=== PATIENT | female | born 1955 | race Caucasian/White ===

== ENCOUNTER → 2023-06-10 08:00 | Outpatient (REF) | payer OTHER, SELFPAY | LOC: MRI 3T 08:00 | PROVIDERS: ATTENDING PHYSICIAN Physical Medicine & Rehabilitation; FAMILY PHYSICIAN Internal Medicine | DX: M23.91 Unspecified internal derangement of right knee (principal) | CPT/HCPCS: 73721 ==

== ENCOUNTER → 2023-06-19 07:58 | Outpatient (REF) | payer OTHER, SELFPAY ==
[2023-06-19 10:11] LABS: Albumin 4.1 g/dl (3.5-5.0); Blood Urea Nitrogen 17 mg/dl (7-17); Calcium 9.5 mg/dl (8.4-10.2); Carbon Dioxide 29 mmol/L (22-30); Chloride 107 mmol/L (98-107); Glucose 109 mg/dl (70-99); Phosphorus 3.6 mg/dl (2.5-4.5); Potassium 4.1 mmol/L (3.5-5.1); Sodium 140 mmol/L (135-145); eGFR > 60.00
== END ==
LOC: HWRAD 07:58
PROVIDERS: ATTENDING PHYSICIAN Internal Medicine; REFERRING PHYSICIAN Internal Medicine Cardiovascular Disease
DX: R60.0 Localized edema (principal)
CPT/HCPCS: 36415; 80069; 93970

== ENCOUNTER → 2023-09-05 12:39 | Outpatient (REF) | payer OTHER, SELFPAY | LOC: RCS 12:39 | PROVIDERS: ATTENDING PHYSICIAN Internal Medicine Cardiovascular Disease; FAMILY PHYSICIAN Internal Medicine | DX: R00.2 Palpitations (principal) | CPT/HCPCS: 93225; 93226 ==

== ENCOUNTER → 2024-07-23 10:25 | Outpatient (REF) | payer OTHER, SELFPAY | LOC: HWRAD 10:25 | PROVIDERS: ATTENDING PHYSICIAN Obstetrics & Gynecology; FAMILY PHYSICIAN Internal Medicine | DX: R10.2 Pelvic and perineal pain (principal) | CPT/HCPCS: 76830; 76856 ==

== ENCOUNTER 2024-08-26 17:38 | Emergency (ER) | payer OTHER, SELFPAY ==
[2024-08-26 17:41] VITALS: BP 197/105
[2024-08-26 19:42] VITALS: BP 177/90
[2024-08-26] MEDS: TYLENOL 650 MG PO (19:55)
--- NOTE | 2024-08-26 20:25 | ED.GENMED ---
History of Present Illness
General
Chief Complaint: Head Injury
Source: patient and family ( at bedside)
Exam Limitations: none
Time Seen by Provider: 08/26/24 19:27
Nursing documentation reviewed up to this point in time: agreed with
History of Present Illness
History of Present Illness:
TIME OF INITIAL EVALUATION
-19:27
REVIEW OF OLD RECORDS
- N/A
CHIEF COMPLAINT(S)
Head injury
HISTORY OF PRESENT ILLNESS
The patient, a 69-year-old female with no prior significant medical history, presents with head trauma after a fall. At approximately 1:30 PM, the patient was carrying items into her house while wearing flip-flops and lost her footing, resulting in
a backward fall onto concrete. She struck her head on the ground but did not lose consciousness. No one was with her at the time. She reports a headache as well as a sensation of pressure behind her left eye described as feeling like 'rubbing your
eye vigorously.' The patient rested at home post-fall, but symptoms persisted. She denies being on blood thinners and reports no neck pain, numbness, tingling, weakness, back pain, bowel or bladder incontinence, or vision changes, except for the
pressure sensation. She experienced no nausea or vomiting and did not feel dizzy or lightheaded. Examination reveals no laceration or bleeding on the scalp. The patient was able to perform a neurologic exam with no apparent deficits.
PHYSICAL EXAM
- Vitals: Hypertensive, otherwise vital signs stable. Afebrile
- General: Well appearing in no distress
- HEENT: Contusion on left posterior scalp. No laceration. No cervical spine or midline spinal tenderness. No tenderness of jaw. EOMIs intact bilaterally, moist oral mucosa
- Cardiovascular: No murmurs, normal heart rate, regular rhythm, No chest wall tenderness
- Pulmonary: No respiratory distress, breath sounds are clear and equal
- Abdomen: Soft with no peritoneal signs, no tenderness
- Neurologic: Alert and oriented x 3, normal [id number], excellent strength all extremities, no coordination deficits
- Psychiatric: Appropriate mental status, normal insight and judgement
- Extremities: Nontender, no edema, moves all extremities equally
- Skin: No rash, no lesions
PLAN
-Administer acetaminophen to manage pain and encourage ice to reduce swelling.
- Obtain CT scan of the head/cervical spine to rule out any intracranial bleeding or fractures, given the nature of the fall.
DIFFERENTIAL DIAGNOSIS
The Differential Diagnosis includes, in no particular order and is not limited to:
1. Concussion
2. Subdural hematoma
3. Epidural hematoma
4. Skull fracture
5. Intracranial hemorrhage
6. Post-traumatic headache
7. Cervical spine injury
8. Traumatic brain injury
9. Orbital fracture
10. Minor head injury
RADIOLOGY
- CT head/cervical spine without acute traumatic injuries
UPDATE
- On reassessment�patient remains well and comfortable appearing. She remains without any focal neurologic deficits. Discussed imaging findings and suspicion of concussion. Discussed supportive care at home and close return precautions. Patient
comfortable with plan
Disposition:
SUMMARY OF ENCOUNTER
The patient, a 69-year-old female with head trauma following a fall, was seen in the emergency department. She fell backward onto concrete while wearing flip-flops and struck her head. She presented with a sensation of pressure behind her left eye
along with a headache and experienced no loss of consciousness, dizziness, or vomiting. Given her presentation, a CT scan of the head and neck was ordered to rule out intracranial bleeding or fractures.
PLAN
The patient was advised to manage symptoms at home with Tylenol or Advil, hydration, rest, and limited screen time. She was encouraged to engage in light cardiac activities such as walking after a few days to improve symptoms. Follow-up with primary
care was recommended to ensure symptom resolution and to address any worsening or new neurologic symptoms.
INDEPENDENT REVIEW OF LABS AND INTERPRETATION OF TESTS
My independent interpretation of the CT scan of the head and neck is that there is no evidence of fracture in the cervical spine or skull, and no intracranial bleeding.
MEDICATION RECONCILIATION
The patient was advised to take Tylenol and/or Advil for pain management.
MEDICAL DECISION MAKING
The differential diagnosis considered included concussion, subdural hematoma, epidural hematoma, skull fracture, intracranial hemorrhage, post-traumatic headache, cervical spine injury, traumatic brain injury, orbital fracture, and minor head
injury. The decision to manage the patient on an outpatient basis was due to the absence of acute findings on imaging, stable presentation, and the availability of follow-up options.
FOLLOW-UP INSTRUCTIONS
The patient was instructed to contact her primary care physician for follow-up by the end of the week. She was advised to return to the emergency department if she experienced any worsening symptoms or new neurological issues such as persistent
dizziness, changes in vision, or difficulty walking.
PATHOLOGIES TO CONSIDER
Concussion, subdural hematoma, epidural hematoma, skull fracture, intracranial hemorrhage, cervical spine injury, traumatic brain injury, orbital fracture.
Past History
Past History
ED Past Medical History: Hypothyroidism
ED Past Surgical History: Cholecystectomy, Gynecological (D&C, Tubal) and Other (Lumpectomy )
Social History
Tobacco: Former smoker
Alcohol: Occasional
Personal:
Living: with family
Review of Systems
Review of Systems
Allergies reviewed?: Yes
All Other Systems: ROS reviewed and negative except as documented in HPI and ROS
Phy Exam
Physical Exam
Physical Exam:
See HPI
Course
Orders/Labs/Results
Orders:
Orders
08/26/24 19:44
CT Head W/o Iv Contrast Urgent
Comment:
Reason For Exam: fall w/ head strike
Cervical Spine wo Contrast CT [CT Cervical Spine W/o Iv Contr] Urgent
Comment:
Reason For Exam: fall w/ head strike
Acetaminophen [Tylenol] 650 mg PO NOW STA
Vital Signs
Initial and Last Documented VS:
Initial Vital Signs
Temp Pulse Resp Pulse Ox
98.4 F 101 16 96
08/26/24 17:40 08/26/24 17:40 08/26/24 17:40 08/26/24 17:40
Last Documented Vital Signs
Temp Pulse Resp BP Pulse Ox
98.4 F 77 18 165/90 99
08/26/24 17:40 08/26/24 20:58 08/26/24 20:58 08/26/24 20:58 08/26/24 20:58
*Radiology
Radiology exam reviewed: preliminary read by ED provider (Head CT reviewed by me - no acute abnormalities; Cervical spine CT without acute fracture) and radiology read reviewed
*Pulse Oximetry
SaO2: 99
Oxygen Mode of Delivery: Room air
Patient hypoxic: no
*EKG
Interpreted by ED Provider?: NA
*Nozzle Operator Interpretation
Rate: Nozzle Operator- N/A
*Critical Care Note
Total Time (30-74mins, 75-104mins- exclusive of procedures): Not Applicable
Patient Management
Escalation/DeEscalation of care consider admission/obs:
Admit not indicated
ED Attending Note
-
Portions of this chart may have been created with voice recognition software.� Occasional wrong word or��sound alike� substitutions may have occurred due to the inherent limitations of voice recognition software.
Discharge Plan
Departure
Patient Disposition: Home (Routine Discharge)
Patient with high blood pressure during this ER visit?: Yes
Condition: Good
Covid-19: Not Applicable
Discharge Problem:
Concussion
Instructions: Concussion, Adult (DC), Head Injury in Adults (DC), BLOOD PRESSURE
Prescriptions:
No Action
pantoprazole [Protonix] 40 mg tablet,delayed release (DR/EC)
40 mg PO DAILY Qty: 10 0RF
Referrals:
Amilcar Yeager MD [Family Provider, Internal Medicine] - Follow up in 2-3 days
Activity Restrictions/Additional Instructions:
RETURN TO THE EMERGENCY DEPARTMENT WITH ANY SEVERE HEADACHE OR NECK PAIN, INTRACTABLE NAUSEA/VOMITING, PERSISTENT DIZZINESS, VISUAL CHANGES, NUMBNESS/TINGLING OR PAIN IN EXTREMITIES, CHANGES IN MENTAL STATUS, WORSENING OF CURRENT SYMPTOMS, OR ANY
OTHER CONCERNS
- As discussed�your CT of your head/cervical spine showed no acute traumatic abnormalities in the emergency department today. I suspect you likely sustained a concussion today. You should continue to take Tylenol and/or Motrin at home as needed
for pain relief. Get plenty of rest and stay well-hydrated. Limit screen time
- Follow-up with your primary care for further evaluation/management to ensure that symptoms are improving
Monitor your symptoms closely and return to the emergency department with any acute worsening /new symptoms or any other concerns
Interventions
Interventions:
*Risk Screen - Suicide Last Done: 08/26/24 17:42
*General Assessment Last Done: 08/26/24 17:42
*Neglect/Abuse Screening Last Done: 08/26/24 17:42
*ED- Fall Risk Assessment Last Done: 08/26/24 20:20
*ED COVID-19 Vaccine History Last Done: 08/26/24 20:20
*Nursing Disposition Last Done: 08/26/24 21:08
ED- Neurological Assessment Last Done: 08/26/24 20:20
ED-Skin Assessment Last Done: 08/26/24 20:20
Discharge Date and Time
Discharge Date/Time: 08/26/24 21:10
Print Language: ALGERIAN
[2024-08-26 20:58] VITALS: BP 165/90
== END 2024-08-26 21:10 | disposition home or self-care (01) ==
LOC: EMR 17:38
PROVIDERS: EMERGENCY PHYSICIAN Emergency Medicine; FAMILY PHYSICIAN Internal Medicine
DX: S06.0XAA Concussion with loss of consciousness status unknown, initial encounter (principal); W22.09XA Striking against other stationary object, initial encounter; Y92.009 Unspecified place in unspecified non-institutional (private) residence as the place of occurrence of the external cause; S09.90XA Unspecified injury of head, initial encounter; E03.9 Hypothyroidism, unspecified; Z87.891 Personal history of nicotine dependence; Z90.49 Acquired absence of other specified parts of digestive tract
CPT/HCPCS: 99284; 70450; 72125